=== PATIENT | female | born 2000 | race Two or more races ===

== ENCOUNTER 2022-04-05 17:46 | Emergency (ER) | payer OTHER ==
[~2022-04-05] VITALS: Ht 152.4 cm; Wt 70.0 kg
[2022-04-05] MEDS ORDERED: TRAN650T5 PO (17:56)
[2022-04-05 19:01] LABS: BASOPHILS % 0.2 % (0.0-2.0); EOSINOPHILS % 3.3 % (0.0-5.0); HEMATOCRIT. 37.2 % (36.0-48.0); HEMOGLOBIN. 12.1 g/dL (12.0-16.0); LYMPHOCYTES % 22.2 % (20.0-50.0); MEAN CORPUSCULAR HEMOGLOBIN 26.2 pg (28.0-32.0); MEAN CORPUSCULAR VOLUME 80.3 fL (81.0-99.0); MEAN PLATELET VOLUME 8.6 fl (7.4-10.4); NEUTROPHILS % 66.3 % (40.0-76.0); PLATELET 262 x1000/uL (130-400); RED BLOOD CELL COUNT 4.63 mill/uL (4.2-5.4); RED CELL DISTRIBUTION WIDTH 14.3 % (11.6-14.6)
[2022-04-05 19:06] LABS: CHLORIDE 105 mEq/L (98-107)
[2022-04-05] MEDS ORDERED: POTASSIUM CHLORIDE 20MEQ TABLET SR PO ONE (19:15)
[2022-04-05 19:17] LABS: B-HCG QUANTITATIVE < 1 mIU/mL (<3)
[2022-04-05 19:19] LABS: PROTHROMBIN TIME 10.9 sec (9.6-11.0)
[2022-04-05 21:33] LABS: HEMATOCRIT 31.8 % (36.0-48.0); HEMOGLOBIN 10.3 g/dL (12.0-16.0)
[2022-04-05 22:30] VITALS: BP 109/72
== END 2022-04-05 22:50 | disposition home or self-care (01) ==
LOC: ER 17:46
DX: N93.9 Abnormal uterine and vaginal bleeding, unspecified (principal); D21.9 Benign neoplasm of connective and other soft tissue, unspecified; I49.9 Cardiac arrhythmia, unspecified; Z98.890 Other specified postprocedural states
CPT/HCPCS: 36415; 76856; 80053; 82962; 84702; 85014; 85018; 85025; 86850; 86900; 93005; 99285